=== PATIENT | female | born 1990 | race African-American/Black ===

== ENCOUNTER 2020-06-04 15:01 | Emergency (ER) | payer SELFPAY ==
[2020-06-04 17:30] LABS: Bilirubin Neg (Negative); Blood, Urine 250 (Negative); Clarity Slightly Cloudy (Clear); Glucose, Urine (Dipstick) Normal (Negative); Ketone, Urine Negative (Negative); Leukocyte 500 (Negative); Nitrite Negative (Negative); Protein, Urine (Dipstick) 15 mg/dl (Neg-Trace); Specific Gravity, Urine 1.015 (1.002-1.036); Urobilinogen Normal mg/dL (Less than 2)
[2020-06-04 17:42] LABS: #Eosinphils 0.1 10x3/uL (0.0-0.5); #Monocytes 0.5 10x3/uL (0.0-1.1); #Neutrophils 5.2 10x3/uL (1.5-8.4); %Basophils 0.4 % (0.0-2.0); %Eosinophils 1.1 % (0.0-6.0); %Lymphocytes 26.2 % (18.0-47.0); %Monocytes 5.7 % (0.0-10.0); %Neutrophils 66.3 % (40.0-75.0); Mean Corpuscular HGB CONC 30.7 g/dL (32.0-36.0); Mean Corpuscular Hemoglobin 23.6 pg (27.0-33.0); Mean Corpuscular Volume 77.1 fl (81.6-98.3); Mean Platelet Volume 10.1 fl (7.4-10.4); Platelet Count 320 10x3/uL (150-450); RBC Distribution Width 16.9 % (11.5-14.5); Red Blood Cell (RBC) Count 4.23 10x6/uL (3.90-5.03); White Blood Cell (WBC) Count 7.9 10x3/uL (3.5-10.5)
[2020-06-04 17:53] LABS: BHCG - Serum Negative (NEGATIVE); Pregs Control Background? CLEAR/WHITE (CLR/WHITE); Pregs Control Bar Appear? YES (CONTROL BAR)
[2020-06-04 17:55] LABS: ALT (SGPT) 16 U/L (8-55); AST (SGOT) 15 U/L (5-34); Albumin 3.5 g/dL (3.5-5.0); Alkaline Phosphatase 77 U/L (40-110); Anion Gap 14 mmol/L (10-20); BUN (Urea Nitrogen) 10 mg/dL (7.0-18.7); Bilirubin, Total 0.4 mg/dL (0.2-1.2); Calc. Creatinine Clearance 0 mL/min (70-130); Carbon Dioxide 24 mmol/L (22-29); Chloride 108 mmol/L (98-107); Globulin 3.4 g/dL (2.4-3.5); Glucose 68 mg/dL (70-105); Lipase 25 U/L (8-78); Potassium 3.8 mmol/L (3.5-5.1); Protein, Total 6.9 g/dL (6.0-8.3); Sodium 142 mmol/L (136-145)
[2020-06-04 18:13] LABS: Bacteria/HPF 2+ HPF (None Seen); Trichomonas/HPF Rare HPF (None Seen)
[2020-06-04 18:15] LABS: Mucous/LPF Rare LPF (<2+)
[2020-06-04] MEDS ORDERED: metroNIDAZOLE 500 MG TAB ONE (18:37)
[2020-06-04] MEDS ORDERED: cefTRIAXone\\ROCEPHIN 500 MG VIAL ONE (18:37)
[2020-06-06 18:49] LABS: Chlam.trachomatis by PCR,Urine Not Detected (NotDetected)
== END 2020-06-04 18:50 | disposition home or self-care (01) ==
LOC: CSHERS 15:01
DX: N39.0 Urinary tract infection, site not specified (principal); A59.9 Trichomoniasis, unspecified
CPT/HCPCS: 36415; 80053; 81003; 81015; 83690; 84703; 85025; 87086; 87491; 87591; 96372; 99284; J0696

== ENCOUNTER 2020-10-22 10:42 | Emergency (ER) | payer OTHER, SELFPAY ==
[2020-10-22] MEDS ORDERED: Ketorolac Tromethamine 30 MG/ML VIAL ONE (12:00)
== END 2020-10-22 12:35 | disposition home or self-care (01) ==
LOC: CSHERS 10:42
DX: M70.51 Other bursitis of knee, right knee (principal); M70.52 Other bursitis of knee, left knee
CPT/HCPCS: 96372; 99283; J1885

== ENCOUNTER 2021-07-13 08:55 | Emergency (ER) | payer OTHER ==
[2021-07-13] MEDS ORDERED: Ketorolac Tromethamine 30 MG/ML VIAL ONE (09:24)
[2021-07-13] MEDS ORDERED: Lidocaine 1% w/Epinephrine 1:100K 20 ML VIAL ONE (09:28)
== END 2021-07-13 10:03 | disposition home or self-care (01) ==
LOC: CSHERS 08:55
DX: L73.2 Hidradenitis suppurativa (principal)
CPT/HCPCS: 10060; 96372; J1885

== ENCOUNTER 2021-07-31 08:28 | Emergency (ER) | payer BC, OTHER ==
[2021-07-31] MEDS ORDERED: Ketorolac Tromethamine 30 MG/ML VIAL ONE (09:03)
== END 2021-07-31 13:30 | disposition home or self-care (01) ==
LOC: CSHERS 08:28
DX: L02.91 Cutaneous abscess, unspecified (principal)
CPT/HCPCS: 96374; 96375; J1885; J3490

== ENCOUNTER 2021-08-20 02:48 | Inpatient (IN) | payer BC ==
[2021-08-20] MEDS ORDERED: Haloperidol Lactate 5 MG/ML VIAL ONE (03:14)
[2021-08-20] MEDS ORDERED: Ondansetron PF 4 MG/2 ML Vial ONE (04:13)
[2021-08-20 04:48] LABS: #Eosinphils 0.1 10x3/uL (0.0-0.5); #Monocytes 0.2 10x3/uL (0.0-1.1); #Neutrophils 11.1 10x3/uL (1.5-8.4); %Basophils 0.2 % (0.0-2.0); %Eosinophils 0.4 % (0.0-6.0); %Lymphocytes 3.4 % (18.0-47.0); %Monocytes 1.9 % (0.0-10.0); %Neutrophils 93.5 % (40.0-75.0); Hemoglobin 9.7 g/dL (12.0-15.5); Mean Corpuscular HGB CONC 31.6 g/dL (32.0-36.0); Mean Corpuscular Volume 69.6 fl (81.6-98.3); Mean Platelet Volume 9.4 fl (7.4-10.4); Platelet Count 301 10x3/uL (150-450); RBC Distribution Width 20.7 % (11.5-14.5); Red Blood Cell (RBC) Count 4.41 10x6/uL (3.90-5.03); White Blood Cell (WBC) Count 11.9 10x3/uL (3.5-10.5)
[2021-08-20 05:04] LABS: ALT (SGPT) 233 U/L (8-55); AST (SGOT) 709 U/L (5-34); Albumin 3.7 g/dL (3.5-5.0); Alkaline Phosphatase 160 U/L (40-110); Anion Gap 19 mmol/L (10-20); BUN (Urea Nitrogen) 10 mg/dL (7.0-18.7); Bilirubin, Total 1.8 mg/dL (0.2-1.2); Calc. Creatinine Clearance 0 mL/min (70-130); Carbon Dioxide 21 mmol/L (22-29); Chloride 105 mmol/L (98-107); Globulin 4.3 g/dL (2.4-3.5); Glucose 100 mg/dL (70-105); Lipase 10 U/L (8-78); Potassium 3.9 mmol/L (3.5-5.1); Sodium 141 mmol/L (136-145)
[2021-08-20 05:38] LABS: Acetaminophen Less than 10.0 mcg/mL (10.0-30.0); Alcohol Less than 10 mg/dL (Less than 10); Salicylate Less than 8.0 mg/dL (15.0-30.0)
[2021-08-20 06:06] LABS: Platelet Morphology Comment Appears Adequate
[2021-08-20 06:08] LABS: Anisocytosis SLIGHT = 6-15 cells (100X) (0-5/hpf); Elliptocytes SLIGHT = 2-5 cells (100X) (0-1/hpf); Hypochromia SLIGHT = 6-15 cells (100X) (0-5/hpf); Macrocytosis SLIGHT = 6-15 cells (100X) (0-5/hpf); Microcytosis SLIGHT = 6-15 cells (100X) (0-5/hpf); Polychromasia SLIGHT = 2-3 cells (100X) (0-2/hpf); Target Cells SLIGHT = 2-5 cells (100X) (0-1/hpf)
[2021-08-20] MEDS ORDERED: Piperacillin/Tazobactam 3.375 GM VIAL ONE ×2 (06:11→10:28)
[2021-08-20] MEDS ORDERED: Pantoprazole 40 MG VIAL IVP SCH (09:00)
[2021-08-20] MEDS ORDERED: Acetaminophen 325 MG TAB PO PRN (09:29)
[2021-08-20] MEDS ORDERED: Ondansetron PF 4 MG/2 ML Vial IVP PRN (09:29)
[2021-08-20] MEDS ORDERED: Ondansetron ODT 4 MG TAB PO PRN (09:29)
[2021-08-20] MEDS ORDERED: Sodium Chloride 0.9% 1,000 ML IV SCH (09:30)
[2021-08-20] MEDS ORDERED: Electrolyte Replacement Protocol 1 EACH FS SCH (09:45)
[2021-08-20] MEDS ORDERED: Morphine 2 MG/ML VIAL SLOW IVP PRN (09:49)
[2021-08-20] MEDS ORDERED: Piperacillin/Tazobactam 3.375 GM in Sodium Chloride 0.9% 100 ML IVPB SCH (10:00)
[2021-08-20 10:08] LABS: INR-International Normal Ratio 1.1; Prothrombin Time 11.9 sec (9.5-12.1)
[2021-08-20 10:13] LABS: ALT (SGPT) 551 U/L (8-55); AST (SGOT) 1173 U/L (5-34); Albumin 3.5 g/dL (3.5-5.0); Alkaline Phosphatase 225 U/L (40-110); Bilirubin, Direct 1.4 mg/dL (0.1-0.3); Bilirubin, Total 2.6 mg/dL (0.2-1.2); Iron Binding Capacity, Total 266 mcg/dL (265-497); Protein, Total 7.4 g/dL (6.0-8.3)
[2021-08-20] MEDS ORDERED: Pantoprazole 40 MG VIAL ONE (10:28)
[2021-08-20 10:32] LABS: HCG, Total Quant Less than 1.20 mIU/mL (See Ranges); Hep B Surf Ag Non-Reactive S/CO (NonReactive)
[2021-08-20 10:42] LABS: HBSAg Index 0.19 S/CO (0-0.99)
[2021-08-20] MEDS ORDERED: Haloperidol Lactate 5 MG/ML VIAL SLOW IVP SCH (13:00)
[2021-08-20 14:34] LABS: HBCM Index 0.12 S/CO (0-0.79); Hep A IgM AB Non-Reactive (NonReactive); Hep A IgM S/CO 0.25 S/CO (0-0.79); Hep C IgG Ab Non-Reactive (NonReactive); Hep C Index 0.11 S/CO (0-0.79); Hepatitis B Core IgM Abs Non-Reactive (NonReactive)
[2021-08-22 15:14] LABS: EBV VCA IgM <36.0 U/mL (0.0-35.9)
[2021-08-23 07:14] LABS: CMV IgG AB Greater than 10.00 U/mL (0.00-0.59)
[2021-08-23 23:07] LABS: HIV-1 Quantitative, RNA PCR <20 copies/mL (.)
== END 2021-08-20 14:34 | disposition left against medical advice (07) | DRG 446 ==
LOC: SUATTDRO 02:48 → CSHERS 02:48 → CSHERHOLD 07:58
PROVIDERS: ADMIT Family Medicine; ATTEND Family Medicine
DX: K81.0 Acute cholecystitis (principal); R11.2 Nausea with vomiting, unspecified; F12.19 Cannabis abuse with unspecified cannabis-induced disorder; R74.01 Elevation of levels of liver transaminase levels; D50.9 Iron deficiency anemia, unspecified; F17.200 Nicotine dependence, unspecified, uncomplicated; Z53.21 Procedure and treatment not carried out due to patient leaving prior to being seen by health care provider; Z91.040 Latex allergy status; Z98.51 Tubal ligation status; Z91.09 Other allergy status, other than to drugs and biological substances
CPT/HCPCS: 74176; 76705; 80053; 80074; 80307; 83540; 83550; 83690; 84702; 85025; 85610; 86644; 86645; 86664; 86665; 87040; 87536; C9113; J1630; J2405; J2543; J3490; J7050